=== PATIENT | male | born 1985 | race Caucasian/White ===

== ENCOUNTER 2020-07-17 01:27 | Outpatient (CLI) | payer OTHER, SELFPAY ==
--- NOTE | 2020-07-17 15:00 | ETT_ITS ---
APPROVED REPORT Exam: Exercise Treadmill Patient Location: Out-Patient Room/Bed: Stress Nurse: Fiorella Gonzalez RN Ordering Provider:YAQUELIN ABERNATHY, Contact Number: [phone] BMI: 27.66 Baseline Rhythm: Sinus Rhythm Comment: Inverted T wave leads II, III, AVF, V5, V6 Indications: Other chest pain Medical History Medical History: None Cardiac Medications: Isosorbide mononitrate/ [place] Allergies: NKA Cardiac Risk Factors: None Previous Cardiac Procedures: None Pretest Chest Pain Characteristics: None Exercise History: Sedentary Physical Disabilities: None Lung Sounds: Clear to auscultation Heart Sounds: Regular Stress Test Details Test: Exercise stress testing was performed using a Navid protocol. Rest Stress HR Resting HR Supine: 60 bpm Max Heart Rate (APMHR): 184 bpm Resting HR Standin bpm Target HR (85% APMHR): 156 bpm Max HR Achieved: 185 bpm % of APMHR: 100 Recovery HR: 98 bpm HR response to stress: Normal HR response to stress Comment: Isosorbide mononitrate held for 48 hrs BP Resting BP Supine: 140/64 mmHg Resting BP Standin/76 mmHg Max BP: 212/34 mmHg Recovery BP: 146/54 mmHg BP response to stress: Normal blood pressure response to stress. ECG Resting ECG: Sinus Rhythm Ectopy: None Comment: Inverted T wave leads II, III, AVF, V5, V6 Stress ECG: Sinus Tachycardia ST Change: Horizontal ST depression, Upsloping ST depression Lead(s): II, III, AVF, V4, V5, V6 Stage: [address] Deviation: 1 mm Recovery ECG: Sinus Rhythm Recovery ST Change: No significant ST segment changes noted Recovery Arrhythmia: PAC, occasional PVC Clinical Reason for Termination: Dyspnea, Fatigue Stress Symptoms: Dyspnea, General Fatigue Exercise duration: 16 min34 sec Highest Stage Reached: Stage 6: 5.5 mph at 20% grade. Exercise capacity: 16.53 METs Levi Treadmill Score: 8 Rate Pressure Product: [id number] Stress ECG Conclusion 1. The patient exercised for 16 minutes (17 METS). The patient had no symptoms suggestive of ischemi a. 2. The patient has baseline T wave inversions in both the inferior and lateral leads. This decreases the sensitivity of interpretation of the study. 3. The patient developed [address] depressions toward the end of exercise. These quickly re solved with rest. 4. Given the baseline ECG abnormalities as well as ST depressions with exercise, would suggest study with imaging such as coronary CT scan if clinical suspicion remains high. Levi Treadmill Score is 8 which is Low risk. Stress Test Summary STAGE Time (mins) Speed (mph) Grade (%) HR BP SYMPTOMS METS Supine 60 140/64 Standing 78 120/76 1 3 1.7 10 96 142/58 4.6 2 6 2.5 12 109 164/62 7 3 9 3.4 14 128 168/52 10.2 4 12 4.2 16 152 180/46 increased work of breathing 12.9 1 min recovery 146 180/36 SPO2 97% 3 min recovery 104 212/34 6 min recovery 98 146/54
== END 2020-07-17 01:47 ==
PROVIDERS: PCP Nurse Practitioner; Visit Provider Family Medicine
DX: R07.89 Other chest pain (principal); R94.39 Abnormal result of other cardiovascular function study
CPT/HCPCS: 93017

== ENCOUNTER 2020-08-19 12:59 | Outpatient (CLI) | payer OTHER, SELFPAY ==
--- NOTE | 2020-08-19 12:45 | RT.EKG_ITS ---
APPROVED REPORT Exam: Resting ECG Reason for Exam: chest pain Patient Location: O HR:51 bpm ECG Measurements Heart Rate 51 AXIS [place] 142 P 63 QRSd 108 QRS 57 QT 428 T 39 QTc 395 Conclusion Sinus rhythm...normal P axis, V-rate 50- 99 Left ventricular hypertrophy...multiple LVH criteria
== END 2020-08-19 13:00 | disposition home or self-care (01) ==
LOC: DI.CARD 13:00
PROVIDERS: PCP Family Medicine; Visit Provider Internal Medicine Cardiovascular Disease
DX: R07.9 Chest pain, unspecified (principal)
CPT/HCPCS: 93010

== ENCOUNTER 2020-10-16 14:42 | Outpatient (REF) | payer OTHER, SELFPAY ==
[2020-10-18 22:28] LABS: HSV 1 PCR, Varies Negative (Negative); HSV 2 PCR, Varies Negative (Negative); Herpes Source PENIS
[2020-10-21 08:57] LABS: Chlamydia Result Negative (Negative); GC Result Negative (Negative)
== END 2020-10-16 14:43 | disposition home or self-care (01) ==
LOC: LBN 14:42
PROVIDERS: PCP Family Medicine; Visit Provider Physician Assistant Medical
DX: N48.89 Other specified disorders of penis (principal); Z11.59 Encounter for screening for other viral diseases
CPT/HCPCS: 87491; 87529; 87591